=== PATIENT | female | born 1980 | race Caucasian/White ===

== ENCOUNTER 2024-04-23 08:29 | Outpatient (CLI) | payer BC, SELFPAY ==
--- NOTE | ~2024-04-23 | MM_ITS ---
EXAMINATION: MM screening jorge BI w damaris HISTORY: Screening TECHNIQUE: Craniocaudal and mediolateral oblique 3-D tomosynthesis images were obtained and synthetic 2-D images were generated. CAD analysis was submitted and interpreted. COMPARISON: No prior mammogram is available for comparison at this institution. BREAST PARENCHYMAL COMPOSITION: Not dense: There are scattered areas of fibroglandular density. FINDINGS: There is no evidence of suspicious mass, calcification, or architectural distortion to sugg est malignancy in either breast. There has been no suspicious interval change. IMPRESSION: 1. No mammographic evidence of malignancy. 2. Recommend routine screening mammography in one year. BI-RADS Category 1: Negative Reviewed, dictated and finalized at location [facility].
== END 2024-04-23 08:30 | disposition home or self-care (01) ==
LOC: ANHIMG 08:31
PROVIDERS: PCP Physician Assistant; Visit Provider Physician Assistant
DX: Z12.31 Encounter for screening mammogram for malignant neoplasm of breast (principal)
CPT/HCPCS: 77063; 77067

== ENCOUNTER 2024-12-04 03:19 | Emergency (ER) | payer BC, SELFPAY ==
--- NOTE | ~2024-12-04 | US_ITS ---
US right upper quadrant DATE: 12/04/2024 08:47 INDICATION: Abdominal pain TECHNIQUE: Real-time and color flow imaging of the right upper quadrant COMPARISON: None FINDINGS: There is increased echogenicity of the renal parenchyma consistent with hepatic steatosis. No hepatic space-occupying mass lesion is identified. Normal hepatopedal portal venous flow direction . No pancreatic mass lesion or ductal dilatation is noted. Multiple gallstones are noted as well as gallbladder sludge. Gallbladder wall thickness appears withi n normal limits. Negative sonographic Ortega's sign but the patient is reportedly on pain medication which limits the sensitivity of this maneuver. The common bile duct measures 5.2 mm, within normal limits. IMPRESSION: Cholelithiasis Hepatic steatosis Reviewed, dictated and finalized at [facility]. Reviewed, dictated and finalized at location [facility]. ET CLEANING EQUIPMENT OPERATOR
--- NOTE | ~2024-12-04 | XR_ITS ---
EXAMINATION: XR chest 2V DATE: 12/04/2024 04:19 INDICATION: Chest pain. Nausea and vomiting. TECHNIQUE: Frontal and lateral views of the chest were obtained. COMPARISON: None. FINDINGS: There is no pneumonia, pleural effusion, or pneumothorax. The heart size is normal. IMPRESSION: 1. No acute cardiopulmonary disease. Reviewed, dictated and finalized at location [facility]. AIDE
--- NOTE | 2024-12-04 03:21 | ECG_ITS ---
Test Date: 2024-12-04 03:31:09 Measurements Intervals [place] Rate: 97 P: 42 NV: 175 QRS: 44 QRSD: 81 T: 11 QT: 352 QTc: 449 Interpretive Statements SINUS RHYTHM DELAYED R-WAVE PROGRESSION ABNORMAL EKG Electronically Signed On 12-04-2024 10:50:10 [employer]OT DRILL OPERATOR by Derrick North M.D.
[2024-12-04 03:23] VITALS: BP 136/84; PULSE 104; RESP 15; TEMP 36.5; O2SAT 100
[2024-12-04 03:49] LABS: Basophils Absolute Auto 0.1 K/mm3 (0.0-0.1); Basophils Percent Auto 0.8 % (0.2-1.2); Eosinophils Absolute Auto 0.3 K/mm3 (0-0.3); Hematocrit 45.5 % (37.0-47.0); Hemoglobin 14.8 g/dL (12.0-15.0); Immature Granulocyte Absolute 0.02 K/mm3 (0.00-0.031); Immature Granulocyte Percent A 0.2 % (0-0.5); Lymphocytes Absolute Auto 2.71 K/mm3 (0.9-3.2); Lymphocytes Percent Auto 31.3 % (18.3-44.2); Mean Corpuscular HGB Conc 32.5 g/dl (32-36); Mean Corpuscular Hemoglobin 24.9 pg (26-34); Mean Corpuscular Volume 76.6 fl (80-100); Mean Platelet Volume 8.6 fl (7.4-10.4); Monocytes Absolute Auto 0.5 K/mm3 (0.1-0.6); Monocytes Percent Auto 5.2 % (2.6-8.5); Neutrophils Absolute Auto 5.2 K/mm3 (1.3-6.7); Neutrophils Percent Auto 59.5 % (45.5-73.1); Platelet Count Result 281 k/mm3 (150-375); Red Blood Count 5.94 M/mm3 (4.2-5.4); Red Cell Distribution Width 13.8 % (11.5-14.5); White Blood Count 8.7 K/mm3 (4.5-10.0)
[2024-12-04 04:05] LABS: Alanine Aminotransferase 33 U/L (6-35); Albumin Level 4.4 g/dL (3.5-5.1); Alkaline Phosphatase 107 U/L (38-126); Anion Gap 11 mmol/L (4-12); Aspartate Amino Transferase 25 U/L (14-36); Bilirubin,Total 0.5 mg/dL (0.2-1.3); Blood Urea Nitrogen 13 mg/dL (7-17); Calcium 8.5 mg/dL (8.4-10.2); Carbon Dioxide 24 mmol/L (22-30); Chloride 104 mmol/L (98-107); Estimated CRCL calculation 127 ml/min; Estimated Glomerular Filt Rate > 60; Glucose 124 mg/dL (65-110); Lipase 146 U/L (23-300); Potassium 3.4 mmol/L (3.4-5.0); Sodium 139 mmol/L (137-145)
[2024-12-04 04:09] LABS: INR 0.9; Prothrombin Time 12.7 Seconds (11.1-14.7)
[2024-12-04 04:10] LABS: Partial Thromboplastin Time 26.4 Seconds (22.3-36.8)
[2024-12-04 04:16] LABS: Troponin I < 0.012 ng/mL (0.000-0.034)
[2024-12-04 07:40] VITALS: BP 137/81; PULSE 90; RESP 18; O2SAT 100
[2024-12-04] MEDS: ONDANSETRON INJ 4 MG/2 ML VIAL IV PUSH (08:01)
[2024-12-04] MEDS: MORPHINE SULFATE (*CRX) 2 MG/ML INJ IV PUSH (08:01)
--- NOTE | 2024-12-04 08:37 | ED_ITS ---
HPI - General Adult General Chief complaint: Chest Pain Stated complaint: chest pain/nausea/abdominal pain Time Seen by Provider: 12/04/24 07:30 History of Present Illness HPI narrative: Patient is a 44-year-old female who presents ER with epigastric pain and chest pain. Burning in nature. Worse when she lays down at night. Tried taking [id number] S reflux medicine past unsure if it worked. This is been happening intermittently. Not exacerbated by eating or drinking. No exertional chest discomfort. His mom mild radiation to her back. She does have slight nausea. Related Data Allergies Allergy/AdvReac Type Severity Reaction Status Date / Time No Known Allergies Allergy Verified 12/04/24 03:20 Review of Systems 2 Review of Systems: All systems reviewed & are unremarkable except as noted in HPI and below Constitutional: Constitutional: Reports no additional constitutional complaints ENT: Reports system reviewed and no additional complaints, except as documented Cardiovascular: Cardiovascular: Reports no additional cardiovascular complaints Respiratory: Respiratory: Reports no additional respiratory complaints Gastrointestinal: Gastrointestinal: Reports no additional gastrointestinal complaints [facility] Past Medical History Medical History (Updated 12/04/24 @ 09:24 by Glynn Mejia MD) Hypertension Surgical History Surgical History (Updated 12/04/24 @ 08:42 by Glynn Mejia MD) No history of previous surgery Exam 2 Narrative: GENERAL: Well-appearing, well-nourished, and in no acute distress. HEAD: Normocephalic, atraumatic. ENT: Mucous membranes moist. CHEST: Clear to auscultation. No respiratory distress. HEART: Regular rate and rhythm. Normal peripheral pulses. ABDOMEN: Soft, nontender, nondistended. EXTREMITIES: Normal range of motion. No edema. SKIN: Warm, dry, no rash. NEURO: Alert and oriented x3. PSYCH: Normal mood and affect. Course Course Emergency Course: Patient resting comfortably. Informed of results. Discharge home with surgical follow-up and low fat diet. Vital Signs Vital signs: Vital Signs Temperature 97.7 F 12/04/24 03:23 Pulse Rate 104 H 12/04/24 03:23 Respiratory Rate 15 12/04/24 03:23 Blood Pressure 136/84 12/04/24 03:23 Pulse Oximetry 100 12/04/24 03:23 Oxygen Delivery Room Air 12/04/24 03:23 Temperature 97.7 F 12/04/24 03:23 Pulse Rate 90 12/04/24 07:40 Respiratory Rate 18 12/04/24 07:40 Blood Pressure 137/81 12/04/24 07:40 Pulse Oximetry 12/04/24 07:40 Oxygen Delivery Room Air 12/04/24 03:23 Medical Decision Making Vital Signs Vital Signs: Vital Signs Temperature 97.7 F 12/04/24 03:23 Pulse Rate 104 H 12/04/24 03:23 Respiratory Rate 15 12/04/24 03:23 Blood Pressure 136/84 12/04/24 03:23 Pulse Oximetry 12/04/24 03:23 Oxygen Delivery Room Air 12/04/24 03:23 Temperature 97.7 F 12/04/24 03:23 Pulse Rate 90 12/04/24 07:40 Respiratory Rate 18 12/04/24 07:40 Blood Pressure 137/81 12/04/24 07:40 Pulse Oximetry 12/04/24 07:40 Oxygen Delivery Room Air 12/04/24 03:23 Lab Data 12/04/24 03:34 12/04/24 03:34 Labs: Lab Results 12/04/24 Range/Units 03:34 WBC 8.7 (4.5-10.0) K/mm3 RBC 5.94 H (4.2-5.4) M/mm3 Hgb 14.8 (12.0-15.0) g/dL Hct 45.5 (37.0-47.0) % MCV 76.6 L (80-100) fl MCH 24.9 L (26-34) pg MCHC 32.5 (32-36) g/dl RDW 13.8 (11.5-14.5) % Plt Count 281 (150-375) k/mm3 MPV 8.6 (7.4-10.4) fl Immature Gran % (Auto) 0.2 (0-0.5) % Neut % (Auto) 59.5 (45.5-73.1) % Lymph % (Auto) 31.3 (18.3-44.2) % Johnston % (Auto) 5.2 (2.6-8.5) % Eos % (Auto) 3.0 (0-4.4) % Baso % (Auto) 0.8 (0.2-1.2) % Lymph # (Auto) 2.71 (0.9-3.2) K/mm3 Johnston # (Auto) 0.5 (0.1-0.6) K/mm3 Eos # (Auto) 0.3 (0-0.3) K/mm3 Baso # (Auto) 0.1 (0.0-0.1) K/mm3 Abs Immat Gran (auto) 0.02 (0.00-0.031) K/mm3 Absolute Neuts (auto) 5.2 (1.3-6.7) K/mm3 Absolute Nucleated RBC 0.000 (0.0-0.012) K/mm3 Nucleated RBC % 0.0 (0.0-0.2) % PT 12.7 (11.1-14.7) Seconds INR 0.9 APTT 26.4 (22.3-36.8) Seconds Sodium 139 (137-145) mmol/L Potassium 3.4 (3.4-5.0) mmol/L Chloride 104 (98-107) mmol/L Carbon Dioxide 24 (22-30) mmol/L Anion Gap 11 (4-12) mmol/L BUN 13 (7-17) mg/dL Creatinine 0.52 L (0.7-1.0) mg/dL Estim Creat Clear Calc 127 ml/min Estimated GFR > 60 (59 - ) Glucose 124 H (65-110) mg/dL Calcium 8.5 (8.4-10.2) mg/dL Total Bilirubin 0.5 (0.2-1.3) mg/dL AST 25 (14-36) U/L ALT 33 (6-35) U/L Alkaline Phosphatase 107 (38-126) U/L Troponin I < 0.012 (0.000-0.034) ng/mL Total Protein 8.0 (6.3-8.2) g/dL Albumin 4.4 (3.5-5.1) g/dL Lipase 146 (23-300) U/L Imaging Data Radiologist's impression: ITS Impressions Chest X-Ray 12/04/24 06:24 IMPRESSION: 1. No acute cardiopulmonary disease. Upper Quadrant Ultrasound 12/04/24 08:49 IMPRESSION: Cholelithiasis Hepatic steatosis ECG Data EKG #1: ECG completion date: 12/04/24 ECG completion time: 03:31 EKG Interpretation: normal rate (97), sinus rhythm, no ectopy, no ST changes, normal QRS, normal QT and NL axis Discharge Plan Discharge Clinical Impression: Cholelithiasis Patient Disposition: Home, Self-Care Condition: Stable Instructions: Gallstones (ED), Low Fat Diet (ED) Additional Instructions: Return to the emergency department if you develop severe abdominal pain, severe nausea and vomiting to the point where you are unable to keep down fluids, if you develop chest pain or difficulty breathing, blood in your stool, dizziness or fainting, or if you develop any other new or concerning symptoms as these could be signs of more serious medical illness. Try to stay well hydrated. Patient Language: French Prescriptions: New hydrocodone-acetaminophen 5-325 mg tablet 1 tablet PO Q6H PRN (Reason: pain) Qty: 10 0RF ondansetron 4 mg tablet,disintegrating 4 mg PO Q6H PRN (Reason: nausea and vomiting) Qty: 10 0RF Follow-up/Referrals: Rito,GLENROY Golden [Primary Care Provider] - Andrea Viveros DO [Physician] - 1 Week
[2024-12-04 09:35] VITALS: BP 137/88; PULSE 86; RESP 18; O2SAT 100
== END 2024-12-04 09:37 | disposition home or self-care (01) ==
PROVIDERS: Emergency Medicine; Emergency Provider Emergency Medicine; PCP Physician Assistant
DX: K80.20 Calculus of gallbladder without cholecystitis without obstruction (principal); I10 Essential (primary) hypertension
CPT/HCPCS: 36415; 71046; 76705; 80053; 83690; 84484; 85025; 85610; 85730; 93005; 96374; 96375; 99284; J2270; J2405